=== PATIENT | female | born 1980 | race Caucasian/White ===

== ENCOUNTER 2017-03-21 19:42 | Emergency (ER) | payer MEDICAID ==
[~2017-03-21] VITALS: Ht 162.6 cm; Wt 69.5 kg
[2017-03-21 19:56] VITALS: Ht 162.6 cm; Wt 69.5 kg
[2017-03-21] MEDS ORDERED: ONDANSETRON (ODT) 4 MG TAB ODT STA (20:29)
[2017-03-21] MEDS ORDERED: LIDOCAINE/MYLANTA 40 ML BTL PO STA (20:29)
[2017-03-21] MEDS ORDERED: FAMOTIDINE 20 MG TAB PO STA (20:29)
[2017-03-21 20:38] LABS: URINE BLOOD (Dip) POC 2+ (NEGATIVE)
[2017-03-21] MEDS ORDERED: KETOROLAC 15 MG INJ IV STA (22:02)
[2017-03-21] MEDS ORDERED: morphine 2 MG INJ IV STA (22:02)
--- NOTE | 2017-03-21 22:26 | ERD ---
ER Documentation Chief Complaint Date/Time DATE: 03/21/17 TIME: 22:22 Chief Complaint upper abd painx 2 days, headache HPI This is a 37-year-old female presenting to emergency department for epigastric abdominal pain, headache, dizziness, body aches and nausea 2 days. Patient describes epigastric abdominal pain as burning sensation. Describes pain as constant. No vomiting or diarrhea. No dysuria, hematuria, urinary frequency or urinary urgency. No fevers or chills. Patient denies any relieving or worsening factors. Describes pain as 10/10. Pain does not radiate. ROS All systems reviewed and are negative except as per history of present illness. Medications Home Meds Active Scripts Ondansetron (Ondansetron Odt) 4 Mg Tab.rapdis, 4 MG PO Q6H Y for NAUSEA AND/OR VOMITING, #10 TAB Prov:ERICA TAYLOR NP 03/21/17 Hydrocodone/Acetaminophen ([place] 5-325 Tablet) 1 Each Tablet, 1 EACH PO Q4, #10 TAB Prov:ERICA TAYLOR NP 03/21/17 Allergies Allergies: Coded Allergies: No Known Allergy (Unverified , 03/21/17) PMhx/Soc Medical and Surgical Hx: pt denies Medical Hx, pt denies Surgical Hx History of Surgery: No Anesthesia Reaction: No Hx Neurological Disorder: No Hx Respiratory Disorders: No Hx Cardiac Disorders: No Hx Psychiatric Problems: No Hx Miscellaneous Medical Probl: No Hx Alcohol Use: No Hx Substance Use: No Hx Tobacco Use: No Smoking Status: Never smoker Physical Exam Vitals Vital Signs Date Time Temp Pulse Resp B/P Pulse Ox O2 Delivery O2 Flow Rate FiO2 03/22/17 01:10 98.0 70 16 104/58 100 Room Air 03/21/17 23:20 97.6 03/21/17 19:56 98.5 87 20 114/64 98 Physical Exam Const: Alert Head: Atraumatic Eyes: Normal Conjunctiva ENT: Normal External Ears, Nose and Mouth. Neck: Full range of motion..~ No meningismus. Resp: Clear to auscultation bilaterally. No wheezing, rhonchi or crackles. Cardio: Regular rate and rhythm, no murmurs Abd: Soft, non distended. Normal bowel sounds, no guarding. No rebound tenderness. Negative Elaine sign. No masses detected Skin: No petechiae or rashes Back: No midline or flank tenderness Ext: No cyanosis, or edema Neur: Awake and alert Psych: Normal Mood and Affect Result Diagram: 03/21/17229903/21/172299 Results 24 hrs Laboratory Tests Test 03/21/17 20:40 03/21/17 23:00 Bedside Urine pH (LAB) 5.5 Bedside Urine Protein (LAB) Trace Bedside Urine Glucose (UA) Negative Bedside Urine Ketones (LAB) Negative Bedside Urine Blood 2+ Bedside Urine Nitrite (LAB) Negative Bedside Urine Leukocyte Esterase (L Negative White Blood Count 7.110^3/ul Red Blood Count 4.4710^6/ul Hemoglobin 13.5g/dl Hematocrit 40.6% Mean Corpuscular Volume 90.8fl Mean Corpuscular Hemoglobin 30.2pg Mean Corpuscular Hemoglobin Concent 33.3g/dl Red Cell Distribution Width 11.8% Platelet Count 13515^3/UL Mean Platelet Volume 9.9fl Neutrophils % 73.3% Lymphocytes % 17.0% Monocytes % 8.7% Eosinophils % 0.6% Basophils % 0.1% Nucleated Red Blood Cells % 0.0/100WBC Neutrophils # 5.210^3/ul Lymphocytes # 1.210^3/ul Monocytes # 0.610^3/ul Eosinophils # 0.010^3/ul Basophils # 0.010^3/ul Nucleated Red Blood Cells # 0.010^3/ul Sodium Level 136mmol/L Potassium Level 3.9mmol/L Chloride Level 100mmol/L Carbon Dioxide Level 28mmol/L Anion Gap 12 Blood Urea Nitrogen 11mg/dl Creatinine 0.72mg/dl Glucose Level 96mg/dl Calcium Level 9.2mg/dl Total Bilirubin 2.0mg/dl Direct Bilirubin 0.00mg/dl Indirect Bilirubin 2.0mg/dl Aspartate Amino Transf (AST/SGOT) 36IU/L Alanine Aminotransferase (ALT/SGPT) 71IU/L Alkaline Phosphatase 86IU/L Total Protein 7.8g/dl Albumin 4.4g/dl Globulin 3.40g/dl Albumin/Globulin Ratio 1.29 Lipase 46U/L Current Medications Medications (Trade) Dose Ordered Sig/Solomon Route PRN Reason Start Time Stop Time Status Last Admin Dose Admin Famotidine (Pepcid) 20 mg ONCE STAT PO 03/21/17 20:29 03/21/17 20:32 DC 03/21/17 20:47 Miscellaneous Medication (Gi Cocktail (2)) 40 ml ONCE STAT PO 03/21/17 20:29 03/21/17 20:32 DC 03/21/17 20:47 Ondansetron HCl (Zofran Odt) 4 mg ONCE STAT ODT 03/21/17 20:29 03/21/17 20:32 DC 03/21/17 20:47 Morphine Sulfate (morphine) 2 mg ONCE STAT IV 03/21/17 22:02 03/21/17 22:05 DC 03/21/17 22:50 Ketorolac Tromethamine (Toradol) 15 mg ONCE STAT IV 03/21/17 22:02 03/21/17 22:05 DC 03/21/17 22:50 Morphine Sulfate (morphine) 4 mg ONCE STAT IV 03/21/17 23:17 03/21/17 23:18 DC 03/21/17 23:26 Ondansetron HCl (Zofran Odt) 4 mg ONCE STAT ODT 03/22/17 00:04 03/22/17 00:06 DC 03/22/17 00:16 Ondansetron HCl (Zofran Inj) 4 mg ONCE STAT IV 03/22/17 00:19 03/22/17 00:21 DC 03/22/17 00:25 Hydromorphone HCl (Dilaudid) 1 mg ONCE STAT IV 03/22/17 00:37 03/22/17 00:38 DC 03/22/17 01:05 Procedures/[facility] Patient: DAYANA GILMORE : 1980 Age: 37 Sex: F MR #: [id number] DOS: 03/21/17 2202 Ordering MD: ERICA TAYLOR NP Location: FT Room/Bed: PROCEDURE: US right upper quadrant CLINICAL INDICATION: Abdominal pain TECHNIQUE: Multiple real-time images were acquired of the patient's right upper abdomen utilizing a high resolution transducer. COMPARISON: None available FINDINGS: Liver: Normal in size, contour and echogenicity. Normal directional blood flow is seen within the patent main portal vein. The maximum dimension estimated at 13.3 cm . Gallbladder: Not visualize compatible with the provided history of cholecystectomy in 2012 Common bile duct: Normal for prior cholecystectomy; 7.7 mm. There is no evidence for choledocholithiasis. Right Kidney: Normal; maximum length measured at approximately 9.5 cm. Pancreas: Visualized portions are normal. The tail is partially obscured by bowel gas. RPTAT:HJJR IMPRESSION: Cholecystectomy changes otherwise unremarkable right upper quadrant ultrasound. Medical Decision makin-year-old female presents emergency department for midepigastric abdominal pain, headache, dizziness, generalized body aches, nausea 2 days. No active vomiting or diarrhea while in the ED. Afebrile upon arrival to ED. Vital signs are stable. Patient rating pain 10/10 to mid epigastric region. States pain does not radiate. Patient given Pepcid, Zofran and GI cocktail while in the ED. Upon reassessment, patient continues to have same pain. Consulted Dr. Cordero who suggested obtaining CBC, CMP, lipase and right upper quadrant abdominal US. IV access obtained and patient given Toradol 15mg and morphine 2mg. US gallbladder reviewed by radiologist cholecystectomy changes otherwise unremarkable right upper quadrant ultrasound. Labs show no significant anemia or infection. No significant electrolyte imbalance. Patient Urine is negative for infection and shows 2+ blood. Patient continues to have severe pain and patient given 4mg morphine and 4mg Zofran. Upon reassessment, patient resting comfortably. Discussed findings with Dr. Cordero who agrees that patient is appropriate for outpatient management. At time of discharge, patient began vomiiting nonbillious, nonbloody emesis. Patient states pain has returned. Patient's vital signs are stable. No change in pain. Pain is non-radiating. Discussed findings with Dr. Cantrell who suggesting giving patient Dilaudid 1mg with zofran 4mg. Medications ordered and administered and patient now resting comfortable. No active vomiting. Pain has resolved. Differential diagnosis includes but not limited to acute MD, pancreatitis, peptic ulcer disease, GERD, gastritis, cholelithiasis, choledocholithiasis and gastroparesis and functional dyspepsia. I doubt acute MD due to patient's normal vital signs, patient denies chest pain , shortness of breath, difficulty breathing or heart palpitations. I doubt pancreatitis due to patient's normal lab results. Patient is appropriate for outpatient management and will be given prescription for Zofran and [place]. Instructed patient to follow-up with primary care provider in the next 2-3 days for reassessment. Return to ED for any high fever , chest pain, difficulty breathing, shortness breath, wheezing, vomiting, diarrhea, abdominal pain or any new or worsening symptoms. Patient verbalizes understanding. All questions answered at discharge. Departure Diagnosis: Primary Impression: Abdominal pain Abdominal location: epigastric Qualified Code: R10.13 - Epigastric pain ERICA TAYLOR NP March 21, 2017 22:26
[2017-03-21 23:02] LABS: ADD SCAN DIFF NO; BASOPHILS % 0.1 % (0.0-2.0); EOSINOPHILS % 0.6 % (0.0-7.0); HEMATOCRIT 40.6 % (37.0-47.0); HEMOGLOBIN 13.5 g/dl (12.0-16.0); LYMPHOCYTES # 1.2 10^3/ul (0.8-2.9); MEAN CORPUSCULAR HEMOGLOBIN 30.2 pg (29.0-33.0); MEAN CORPUSCULAR HGB CONC 33.3 g/dl (32.0-37.0); MEAN CORPUSCULAR VOLUME 90.8 fl (82.0-101.0); MEAN PLATELET VOLUME 9.9 fl (7.4-10.4); MONOCYTE # 0.6 10^3/ul (0.3-0.9); MONOCYTES % 8.7 % (0.0-11.0); NEUTROPHIL # 5.2 10^3/ul (1.6-7.5); NEUTROPHILS % 73.3 % (39.0-77.0); PLATELET COUNT 372 10^3/UL (140-415); RED BLOOD COUNT 4.47 10^6/ul (4.20-5.40); RED CELL DISTRIBUTION WIDTH 11.8 % (11.5-14.5); WHITE BLOOD COUNT 7.1 10^3/ul (4.8-10.8)
[2017-03-21] MEDS ORDERED: morphine 4 MG/ML VIAL IV STA (23:17)
[2017-03-21 23:25] LABS: ALBUMIN 4.4 g/dl (3.3-4.9); ALBUMIN/GLOBULIN RATIO 1.29; CALCIUM 9.2 mg/dl (8.4-10.2); CREATININE 0.72 mg/dl (0.44-1.00); POTASSIUM 3.9 mmol/L (3.5-5.1); TOTAL PROTEIN 7.8 g/dl (6.1-8.1)
--- NOTE | 2017-03-21 23:37 | RADRPT ---
PROCEDURE: US right upper quadrant CLINICAL INDICATION: Abdominal pain TECHNIQUE: Multiple real-time images were acquired of the patient's right upper abdomen utilizing a high resolution transducer. COMPARISON: None available FINDINGS: Liver: Normal in size, contour and echogenicity. Normal directional blood flow is seen within the p atent main portal vein. The maximum dimension estimated at 13.3 cm . Gallbladder: Not visualize compatible with the provided history of cholecystectomy in 2012 Common bile duct: Normal for prior cholecystectomy; 7.7 mm. There is no evidence for choledocholit hiasis. Right Kidney: Normal; maximum length measured at approximately 9.5 cm. Pancreas: Visualized portions are normal. The tail is partially obscured by bowel gas. RPTAT:HJJR IMPRESSION: Cholecystectomy changes otherwise unremarkable right upper quadrant ultrasound. Physician Kailey Date Time Electronically viewed and signed by Physician Kaliey on 03/21/2017 23:36 /
[2017-03-21] MEDS ORDERED: ONDA4TAB14 PO (23:42)
[2017-03-21] MEDS ORDERED: HYDR-906 PO (23:42)
[2017-03-22] MEDS ORDERED: ONDANSETRON (ODT) 4 MG TAB ODT STA (00:04)
[2017-03-22] MEDS ORDERED: ONDANSETRON 4 MG INJ IV STA (00:19)
[2017-03-22] MEDS ORDERED: HYDROmorphONE 1 MG/ML SYG IV STA (00:37)
[2017-03-22 01:10] VITALS: BP 104/58; PULSE 70; RESP 16; TEMP 98
== END 2017-03-22 01:11 | disposition home or self-care (01) ==
LOC: FTE 19:42
DX: R10.13 Epigastric pain (principal)
CPT/HCPCS: 76705; 80053; 81003; 83690; 85025; J1170; J1885; J2270; J2405; Z7610

== ENCOUNTER 2018-05-03 15:04 | Emergency (ER) | END 2018-05-03 17:57 | disposition home or self-care (01) ==